=== PATIENT | male | born 2000 | race Caucasian/White ===

== ENCOUNTER 2018-12-13 12:20 | Emergency (ER) | payer OTHER, SELFPAY ==
[2018-12-13 12:25] VITALS: BP 122/62; PULSE 128; RESP 20; TEMP 38.6; O2SAT 95; BMI 28.0
[2018-12-13 12:51] LABS: Influenza A and B by PCR Rapid Negative (Negative)
--- NOTE | 2018-12-13 14:00 | ED.URI ---
HPI - URI/Sore Throat <Esther Her PA-C - Last Filed: 12/13/18 21:20> General Chief Complaint: Upper Respiratory Symptoms Stated Complaint: THINKS HE HAS THE FLU Time Seen by Provider: 12/13/18 14:06 Source: patient Mode of arrival: ambulatory Limitations: no limitations History of Present Illness HPI Narrative: This 18-year-old male comes to ED secondary to onset of cough last night along with fever, some headache and body aches. He states that he feels tired and dizzy. He had a temperature up to 103 this morning. Did take Tylenol at home. he denies wheeze or dyspnea. He states that his chest can hurt when he coughs. denies new pain or swelling in his extremities. There is no family history of blood clots. He states that his throat is scratchy but not terribly sore. He denies rash. He denies recent travel, has been exposed to others who are sick. He did have flu vaccine this year. He is keeping down fluids without problem. Related Data Previous Rx's Medication Instructions Recorded escitalopram 10 mg tablet 10 mg PO QDAY #90 tab 08/06/18 Allergies Allergy/AdvReac Type Severity Reaction Status Date / Time No Known Drug Allergies Allergy Verified 12/13/18 12:25 Review of Systems <Esther Her PA-C - Last Filed: 12/13/18 21:20> Review of Systems ROS Unobtainable: All systems reviewed & are unremarkable except as noted in HPI and below PFSH <Esther Her PA-C - Last Filed: 12/13/18 21:20> Medical History Generalized anxiety disorder (Chronic 07/21/17) Anxiety (Chronic) Surgical History History of third molar tooth extraction Family History Grandfather Arrhythmia Social History Smoking Status: Never smoker Family History Grandfather Arrhythmia Social History Smoking Status: Never smoker Exam <Esther Her PA-C - Last Filed: 12/13/18 21:20> Narrative Exam Narrative: GENERAL APPEARANCE: Patient sitting comfortably, in no distress. HEAD: No sinus TTP. EYES: PERRL, EOMI. EARS: Normal auditory canals, TMS intact, Left is somewhat injected ORAL CAVITY: Normal oropharynx. THROAT: mild erythema, no exudate, PND noted NECK/THYROID: Neck supple, full range of motion, shotty anterior cervical lymphadenopathy. LUNGS: Clear to auscultation bilaterally, dry cough on exam. HEART: RRR without murmur, nl S1, S2, no S3 or S4. DERM: No exanthem EXTREMITIES: No edema, no calf TTP Initial Vital Signs Initial Vital Signs: Vital Signs Temperature 101.5 F H 12/13/18 12:25 Pulse Rate 128 H 12/13/18 12:25 Respiratory Rate 20 12/13/18 12:25 Blood Pressure 122/62 12/13/18 12:25 Pulse Oximetry 95 12/13/18 12:25 <Seamus Flanagan MD - Last Filed: 12/14/18 19:21> Initial Vital Signs Initial Vital Signs: Vital Signs Temperature 101.5 F H 12/13/18 12:25 Pulse Rate 128 H 12/13/18 12:25 Respiratory Rate 20 12/13/18 12:25 Blood Pressure 122/62 12/13/18 12:25 Pulse Oximetry 95 12/13/18 12:25 Course <Esther Her PA-C - Last Filed: 12/13/18 21:20> Additional Information: Patient's influenza testing is negative. He does have a history of pneumonia, chest x-ray with no acute findings. He is feeling considerably improved after ibuprofen. Likely viral syndrome not influenza as testing was repeated twice in case of false negative . He agreed to return if any acutely worsening symptoms Orders Ordered: Discontinued Medications Ibuprofen (Advil) 800 mg PO NOW ONE Stop: 12/13/18 14:11 Last Admin: 12/13/18 14:19 Dose: 800 mg Vital Signs - 8 hr 12/13/18 14:57 12/13/18 14:58 12/13/18 15:26 Temperature 99.8 F H 99.8 F H Pulse Rate 119 H Respiratory Rate 16 Blood Pressure 109/67 Pulse Oximetry 97 <Seamus Flanagan MD - Last Filed: 12/14/18 19:21> Orders Ordered: Discontinued Medications Ibuprofen (Advil) 800 mg PO NOW ONE Stop: 12/13/18 14:11 Last Admin: 12/13/18 14:19 Dose: 800 mg Vital Signs - 8 hr 12/13/18 14:57 12/13/18 14:58 12/13/18 15:26 Temperature 99.8 F H 99.8 F H Pulse Rate 119 H Respiratory Rate 16 Blood Pressure 109/67 Pulse Oximetry 97 MDM - URI/Sore Throat <Esther Her PA-C - Last Filed: 12/13/18 21:20> Lab Data Lab Results 12/13/18 Range/Units 12:31 Influenza A & B (PCR) Negative (Negative) Point of Care Testing Rapid Strep A Negative Imaging Data Chest x-ray: Radiologist's impression: 19 Esther Her PA-C Find Patient Imaging Vipul Diaz N 18 M 2000 ACTIVITY DATE EXAM STATUS AUTHOR 12/13/18 14:[address] [address] XRay Report Signed Patient: Vipul Diaz [facility]#: [id number] : 2000Acct:[id number] Age/Sex: 18 / MDate of Service: 12/13/18 Loc: ED Accession Number: [id number] Procedure: XR chest 2V Ordering Provider: Esther Her P.A-C PROCEDURE: XR CHEST 2V INDICATIONS: fever, cough TECHNIQUE: 2 views of the chest were acquired. COMPARISON: None. FINDINGS: Surgical changes and devices: None. Lungs and pleura: Lungs are clear. No pleural effusions or pneumothorax. Mediastinum: Mediastinal contours are normal. Heart size is normal. Bones and chest wall: No suspicious bony abnormalities. Soft tissues appear unremarkable. IMPRESSION: No acute disease. No focal consolidation. Dictated by: Chip Jara M.D. on 12/13/2018 at 15:06 Approved by: Evaristo Dupont <Seamus Flanagan MD - Last Filed: 12/14/18 19:21> Lab Data Lab Results 12/13/18 Range/Units 12:31 Influenza A & B (PCR) Negative (Negative) Point of Care Testing Rapid Strep A Negative Discharge Plan Departure Patient Disposition: Home Clinical Impression: Acute viral syndrome Discharge Date/Time: 12/13/18 15:44 Interventions: ED Discharge Assessment Last Done: 12/13/18 15:26 Instructions: DI for Viral Syndrome Activity Restrictions/Additional Instructions: your test for the flu is negative, but I do think you have a virus that is causing similar symptoms. Your chest x-ray does not show pneumonia. Since you are feeling better, you can rest at home. Please take 800 mg of ibuprofen (for [id number] tablets) every 8 hr to help with fever and aches. You can add Tylenol every 4-6 hours in between as needed. Rest until you are feeling better and your cough is improved. As we talked about, you should return if you have any acutely worsening symptoms, i.e. difficulty breathing, high fever not responding to the ibuprofen and Tylenol, etc. Please see your PCP if you are not feeling better in the next week Prescriptions: No Action escitalopram oxalate [Lexapro] 10 mg tablet 10 mg PO QDAY Qty: 90 RF: 3 Referrals: Ginny Limon MD [Primary Care Provider] - <Seamus Flanagan MD - Last Filed: 12/14/18 19:21> Cosign ED Attending Cossheyature Attestation: I was in the ER at the time the patient's care. I was available for verbal consultation or to see the patient directly. I agree with the assessment and treatment plan.
--- NOTE | 2018-12-13 14:10 | DI.RAD.S_ITS ---
PROCEDURE: XR CHEST 2V INDICATIONS: fever, cough TECHNIQUE: 2 views of the chest were acquired. COMPARISON: None. FINDINGS: Surgical changes and devices: None. Lungs and pleura: Lungs are clear. No pleural effusions or pneumothorax. Mediastinum: Mediastinal contours are normal. Heart size is normal. Bones and chest wall: No suspicious bony abnormalities. Soft tissues appear unremarkable. IMPRESSION: No acute disease. No focal consolidation. Dictated by: Chip Jara M.D. on 12/13/2018 at 15:06 Approved by: Chip Jara M.D. on 12/13/2018 at 15:06
[2018-12-13] MEDS: IBUPROFEN 400 MG TABLET 800 MG PO (14:19)
[2018-12-13 14:57] VITALS: TEMP 37.7
[2018-12-13 14:58] VITALS: TEMP 37.7
[2018-12-13 15:26] VITALS: BP 109/67; PULSE 119; RESP 16; O2SAT 97
== END 2018-12-13 15:44 | disposition home or self-care (01) ==
PROVIDERS: Emergency Medicine; Emergency Provider Internal Medicine; Family Provider Internal Medicine; PCP Family Medicine
DX: B34.9 Viral infection, unspecified (principal); R50.9 Fever, unspecified
CPT/HCPCS: 71046; 87400; 87880; 99282; 99283

== ENCOUNTER → 2019-02-11 07:49 | Outpatient (CLI) | payer OTHER, SELFPAY ==
[2019-02-11 09:47] LABS: Alanine Aminotransferase 53 IU/L (21-72); Albumin 4.4 g/dL (3.5-5.0); Albumin Globulin Ratio 1.5 (1.0-2.8); Alkaline Phosphatase 48 U/L (38-126); Aspartate Aminotransferase 29 IU/L (17-59); BUN Creatinine Ratio 16.3 (6-22); Bilirubin Total 0.4 mg/dL (0.2-1.3); Blood Urea Nitrogen 13 mg/dL (9-20); Calcium 9.5 mg/dL (8.4-10.2); Carbon Dioxide 30 mmol/L (22-32); Chloride 101 mmol/L (98-107); Cholesterol 111 mg/dL (140-199); Estimated Glomerular Filt Rate > 60.0 mL/min (>60); Glucose 92 mg/dL (70-100); HDL Cholesterol 49 mg/dL (40-60); HEMOLYSIS < 15 (0-50); LDL Cholesterol Calculated 55 mg/dL (<100); Potassium 4.7 mmol/L (3.4-5.1); Sodium 138 mmol/L (137-145); Total Protein 7.4 g/dL (6.3-8.2); Triglycerides 34 mg/dL (35-150)
== END ==
PROVIDERS: Family Provider Internal Medicine; Visit Provider Internal Medicine
DX: Z00.01 Encounter for general adult medical examination with abnormal findings (principal); F41.9 Anxiety disorder, unspecified
CPT/HCPCS: 36415; 80053; 80061; 84443

== ENCOUNTER 2020-06-05 05:17 | Emergency (ER) | payer OTHER, SELFPAY ==
[2020-06-05 05:27] VITALS: BP 135/60; PULSE 73; RESP 15; TEMP 36.4; O2SAT 95; BMI 29.5
--- NOTE | 2020-06-05 05:32 | DI.RAD.S_ITS ---
PROCEDURE: XR ACUTE ABDOMEN SERIES INDICATIONS: Abdominal pain, colicky TECHNIQUE: One view chest and two views of the abdomen were acquired. COMPARISON: None. FINDINGS: Surgical changes and devices: None. Chest: Lungs are clear. Heart size is normal. No pleural effusions. No pneumoperitoneum. Abdomen: Bowel gas pattern is normal. No suspicious calcifications. Visualized solid organ contours appear normal. Bones: No suspicious bony lesions. IMPRESSION: No acute disease process. Dictated by: Berkley Sawant MD, PhD on 06/05/2020 at 8:14 Approved by: Berkley Sawant MD, PhD on 06/05/2020 at 8:15
--- NOTE | 2020-06-05 05:33 | ED_ITS ---
HPI - Abdominal Pain General Chief Complaint: Abdominal Pain Stated Complaint: right side pain Time Seen by Provider: 06/05/20 05:32 Source: patient and family Mode of arrival: Ambulatory Limitations: no limitations History of Present Illness HPI narrative: 19-year-old male nonsmoker with history of ADHD presents with his mother and a chief complaint of a sudden onset right sided abdominal pain that started yesterday at about 4:00 p.m.. He denies provocation, palliation or radiation. He states that at its most intense the pain is 7/10 and crampy and squeezing in nature. He denies any change in bowel habits such as constipation or diarrhea. He denies any dysuria, frequency or urgency. Pain went away for much of the night but then awoke him at 4:00 a.m. today. He has had no nausea or vomiting. He denies any fever or chills. He denies any history of the same. He denies any injury. He denies dysuria, frequency or urgency. MD complaint: abdominal pain Onset (ago): hour(s) Pain Consistency: intermittent and now resolved Location: RLQ Severity: moderate Quality: cramping and stabbing Radiation: none Relieving factors: nothing Exacerbating factors: nothing Associated symptoms: denies other symptoms Related Data Previous Rx's Medication Instructions Recorded ondansetron 4 mg PO TID-QID PRN #10 tab 06/05/20 oxycodone 5 mg PO Q4H PRN #20 tab 06/07/20 tamsulosin 0.4 mg PO BEDTIME #30 cap 06/07/20 tramadol 50 mg PO Q6H PRN #30 tab 06/07/20 Allergies Allergy/AdvReac Type Severity Reaction Status Date / Time No Known Drug Allergies Allergy Verified 06/07/20 15:24 Review of Systems Constitutional Constitutional: Denies chills, Denies fatigue, Denies fever(s), Denies frequent falls, Denies lethargy and Denies weakness Eyes Eyes: Denies change in vision, Denies eye discharge, Denies irritation and Denies loss of vision ENT Ears, Nose, Mouth, and Throat: Denies change in voice, Denies dizziness, Denies neck pain, Denies sore throat and Denies throat swelling Cardiovascular Cardiovascular: Denies chest pain, Denies irregular heart rhythm, Denies lightheadedness, Denies palpitations, Denies dyspnea, Denies dyspnea on exertion and Denies orthopnea Respiratory Respiratory: Denies cough, Denies dyspnea, Denies dyspnea on exertion and Denies wheezing Gastrointestinal Gastrointestinal: Reports abdominal pain, Denies change in bowel habits, Denies diarrhea, Denies nausea and Denies vomiting Musculoskeletal Musculoskeletal: Denies neck pain and Denies numbness Integumentary/Breasts Skin/Breast: Denies pruritus, Denies erythema, Denies rash and Denies wounds Neurologic Neurologic: Denies behavioral changes, Denies confusion, Denies dizziness, Denies frequent falls, Denies loss of vision, Denies numbness and Denies weakness Psychiatric Psychiatric: Denies anxiety, Denies behavioral changes, Denies confusion, Denies depression, Denies homicidal ideation and Denies suicidal ideation Endocrine Endocrine: Denies fatigue, Denies flushing and Denies palpitations Hematologic/Lymphatic Hematologic/Lymphatic: Denies easy bruising Allergic/Immunologic Allergic/Immunologic: Denies urticaria, Denies throat swelling and Denies wheezing Patient History Medical History Anxiety (Chronic) Generalized anxiety disorder (Chronic 07/21/17) Surgical History History of third molar tooth extraction Family History Grandfather Arrhythmia Social History household members: family Smoking Status: Never smoker Smoking Status: Never smoker Substance Use Type: does not use Exam Narrative Exam Narrative: GENERAL: [19] year old patient appears stated age. Well- nourished, well-developed patient, in mild distress. HEAD: Atraumatic. Normocephalic. EYES: Pupils equal round and reactive. Extraocular motions intact. No scleral icterus. No injection or drainage. ENT: Nose without bleeding, purulent drainage. Throat without erythema, tonsillar hypertrophy or exudate. Airway patent. NECK: Trachea midline. Non tender CARDIOVASCULAR: Regular rate and rhythm without murmurs, gallops, or rubs. RESPIRATORY: Clear to auscultation. Breath sounds equal bilaterally. No wheezes, rales, or rhonchi. GASTROINTESTINAL: Abdomen soft, non-tender, nondistended. Bowel sounds noted in all 4 quadrants EXTREMITIES: No edema or joint tenderness. BACK: Nontender without deformity or crepitance. No flank tenderness. NEURO: AOx3. SKIN: No rash or erythema of visible areas Initial Vital Signs Initial Vital Signs: Vital Signs Temperature 97.5 F L 06/05/20 05:27 Pulse Rate 73 06/05/20 05:27 Respiratory Rate 15 06/05/20 05:27 Blood Pressure 135/60 06/05/20 05:27 Pulse Oximetry 95 06/05/20 05:27 Course Orders Ordered: Discontinued Medications Sodium Chloride (Normal Saline 0.9%) 1,000 mls @ 1,000 mls/hr IV BOLUS ONE Stop: 06/05/20 07:14 Last Infusion: 06/05/20 08:12 Dose: 0 mls/hr Documented by: Admin: 06/05/20 06:30 Dose: 1,000 mls/hr Documented by: RONAN Ketorolac Tromethamine (Toradol) 15 mg IV NOW ONE Stop: 06/05/20 06:16 Last Admin: 06/05/20 06:29 Dose: 15 mg Documented by: RONAN Vital Signs Vital signs: Vital Signs - 8 hr 06/05/20 05:27 Temperature 97.5 F L Pulse Rate 73 Respiratory Rate 15 Blood Pressure 135/60 Pulse Oximetry 95 MDM - Abdominal Pain Lab Data Result diagrams: 06/05/20 06:25 06/05/20 06:25 Labs: Lab Results 06/05/20 06/05/20 06/05/20 Range/Units 05:36 06:25 06:25 WBC 8.1 (4.5-11.0) X10^3/uL RBC 4.65 (4.5-5.9) X10^6/uL Hgb 13.5 (13.5-17.5) g/dL Hct 40.1 L (41-53) % MCV 86.2 (80-100) fL MCH 29.0 (26-34) PG MCHC 33.6 (30-36) % RDW 12.9 (11.6-14.8) % Plt Count 221 (150-400) X10^3/uL Neut % (Auto) 69.7 (50-75) % Lymph % (Auto) 21.7 L (25-40) % Whitman % (Auto) 7.5 (3-14) % Eos % (Auto) 0.7 L (2-4) % Baso % (Auto) 0.4 (0-2) % Neut # (Auto) 5600 (6528-3127) /uL Lymph # (Auto) 1800 (3506-6418) /uL Whitman # (Auto) 600 (0-900) /uL Eos # (Auto) 100 (0-450) /uL Baso # (Auto) 0 (0-100) /uL Sodium 139 (137-145) mmol/L Potassium 4.3 (3.4-5.1) mmol/L Chloride 102 (98-107) mmol/L Carbon Dioxide 30 (22-32) mmol/L BUN 11 (9-20) mg/dL Creatinine 0.76 (0.66-1.25) mg/dL Estimated GFR > 60.0 (>60) mL/min BUN/Creatinine Ratio 14.5 (6-22) Glucose 100 (70-100) mg/dL Calcium 9.7 (8.4-10.2) mg/dL Urine Color Yellow Urine Appearance Sl cloudy Urine pH 6.0 (4.5-8.0) Ur Specific [place] 1.020 (1.000-1.035) Urine Protein Trace H (Negative) Urine Glucose (UA) Negative (Negative) g/dL Urine Ketones Negative (NEGATIVE) Urine Occult Blood 3+ H (Negative) Urine Nitrate Negative (Negative) Urine Bilirubin Negative (NEGATIVE) Urine Urobilinogen 0.2 (0.2) E.U./dL Ur Leukocyte Esterase Negative (NEGATIVE) Urine RBC 30-100/hpf H (0-5/HPF) Urine WBC 0-1/hpf (0-5/HPF) Ur Squamous Epith Cells 0-1 /hpf (0-5/HPF) Urine Bacteria None seen (None) Ur Culture Indicated? Cult not indicated Imaging Data CT scan - abdomen/pelvis: Radiologist's Impression: [address] [address] [address] Scan Report Signed Patient: Vipul Diaz NMR#: [id number] : 2000Acct:[id number] Age/Sex: te of Service: 06/05/20 Loc: ED Accession Number: [id number] Procedure: CT kidney ureter bladder (KUB) Ordering Provider: Edmar Ayon D.O. PROCEDURE: CT KIDNEY URETER BLADDER (KUB) INDICATIONS: severe flank pain TECHNIQUE: Noncontrast 5 mm thick sections acquired from the diaphragms to the symphysis. 5 mm thick coronal and sagittal reformats were then performed. For radiation dose reduction, the following was used: automated exposure control, adjustment of mA and/or kV according to patient size. COMPARISON: None. FINDINGS: Image quality: Excellent. Lung bases: Lung bases are clear. Heart size is normal. Urinary system: Both kidneys are normal in size. There are two 3 mm stones in the right upper pole. 4 mm stone in the right proximal ureter. Mild right hydronephrosis. No significant perinephric inflammation. No other urinary calcifications. Both distal ureters appear non-dilated throughout their expected courses. Bladder wall thickness is normal; no calcified bladder stones. Other solid organs: Liver is normal in size. Mild diffuse parenchymal attenuation and relative sparing in the gallbladder fossa. Gallbladder appears normal1 . Pancreas is normal in contours. Spleen is normal in size. No adrenal nodules. Peritoneum and bowel: Unenhanced bowel loops demonstrate normal wall thickness and caliber. No free fluid or air. Nodes and vessels: No retroperitoneal or mesenteric adenopathy by size criteria. Aorta and inferior vena cava are normal in caliber. Abdominal wall: No ventral hernias. Pelvis: No free pelvic fluid. No inguinal hernias or adenopathy. Bones: No suspicious bony lesions. No vertebral body compression fractures. IMPRESSION: 1. 4 mm right proximal ureteral stone causing mild right hydronephrosis. 2. 2 small right upper pole nonobstructing intrarenal calculi. 3. Mild hepatic steatosis. 4. Concordant with preliminary report. Dictated by: Bell Barrios M.D. on 06/05/2020 at 8:46 Approved by: Bell Barrios M.D. on 06/05/2020 at 8:50 Discharge Plan Departure Patient Disposition: Home Clinical Impression: Kidney stone on right side Discharge Date/Time: 06/05/20 08:12 Instructions: DI for Kidney Stones Activity Restrictions/Additional Instructions: *You have been diagnosed with [ kidney stone ] *What to do: *Take medications as directed: Prescriptions sent to [facility] *Follow up with your primary care provider in 2-3 days, call for an appointment. Let them know you were seen in the Emergency Department and that we ask that you be seen in follow up *Return to ER if you should have any new, worsening or concerning symptoms Prescriptions: New ondansetron 4 mg tablet,disintegrating 4 mg PO TID-QID PRN (Reason: nausea and vomiting) Qty: 10 RF: 0 No Action oxycodone 5 mg tablet 5 mg PO Q4H PRN (Reason: pain) Qty: 20 RF: 0 tramadol 50 mg tablet 50 mg PO Q6H PRN (Reason: pain) Qty: 30 RF: 0 tamsulosin 0.4 mg capsule 0.4 mg PO BEDTIME Qty: 30 RF: 1 Referrals: Narinder Jarrett MD [Physician] -
[2020-06-05 05:51] LABS: Bacteria Urine None Seen
[2020-06-05 05:53] LABS: Bilirubin Urine UA NEGATIVE (NEGATIVE); Color Urine UA YELLOW; Glucose Urine UA NEGATIVE (Negative); Ketones Urine UA NEGATIVE (NEGATIVE); Leukocyte Esterase Urine UA NEGATIVE (NEGATIVE); Nitrite Urine UA NEGATIVE (Negative); Occult Blood Urine UA 3+ (Negative); Protein Urine UA TRACE (Negative); Urobilinogen Urine UA 0.2 E.U./dL (0.2)
[2020-06-05 06:09] LABS: Appearance Urine UA SL CLOUDY
[2020-06-05 06:11] LABS: Culture Indicated Urine Cult Not Indicated; RBC Urine 30-100/HPF (0-5/HPF); Squamous Epithelial Cell Urine 0-1 /HPF (0-5/HPF); WBC Urine 0-1/HPF (0-5/HPF)
--- NOTE | 2020-06-05 06:15 | DI.CT.S_ITS ---
PROCEDURE: CT KIDNEY URETER BLADDER (KUB) INDICATIONS: severe flank pain TECHNIQUE: Noncontrast 5 mm thick sections acquired from the diaphragms to the symphysis. 5 mm thick coronal and sagittal reformats were then performed. For radiation dose reduction, the following was used: automated exposure control, adjustment of mA and/or kV according to patient size. COMPARISON: None. FINDINGS: Image quality: Excellent. Lung bases: Lung bases are clear. Heart size is normal. Urinary system: Both kidneys are normal in size. There are two 3 mm stones in the right upper pole. 4 mm stone in the right proximal ureter. Mild right hydronephrosis. No significant perinephric inflammation. No other urinary calcifications. Both distal ureters appear non-dilated throughout their expected courses. Bladder wall thickness is normal; no calcified bladder stones. Other solid organs: Liver is normal in size. Mild diffuse parenchymal attenuation and relative sparing in the gallbladder fossa. Gallbladder appears normal1 . Pancreas is normal in contours. Spleen is normal in size. No adrenal nodules. Peritoneum and bowel: Unenhanced bowel loops demonstrate normal wall thickness and caliber. No free fluid or air. Nodes and vessels: No retroperitoneal or mesenteric adenopathy by size criteria. Aorta and inferior vena cava are normal in caliber. Abdominal wall: No ventral hernias. Pelvis: No free pelvic fluid. No inguinal hernias or adenopathy. Bones: No suspicious bony lesions. No vertebral body compression fractures. IMPRESSION: 1. 4 mm right proximal ureteral stone causing mild right hydronephrosis. 2. 2 small right upper pole nonobstructing intrarenal calculi. 3. Mild hepatic steatosis. 4. Concordant with preliminary report. Dictated by: Bell Barrios M.D. on 06/05/2020 at 8:46 Approved by: Bell Barrios M.D. on 06/05/2020 at 8:50
[2020-06-05] MEDS: KETOROLAC 60 MG/2 ML VIAL 15 MG IV (06:29)
[2020-06-05] MEDS: SODIUM CHLORIDE 0.9% 1,000 ML 1000 ML IV (06:30)
[2020-06-05 06:31] LABS: Add Manual Diff / Slide Review NO; Basophils Absolute Auto 0 /uL (0-100); Basophils Percent Auto 0.4 % (0-2); Eosinophils Absolute Auto 100 /uL (0-450); Eosinophils Percent Auto 0.7 % (2-4); Hematocrit 40.1 % (41-53); Hemoglobin 13.5 g/dL (13.5-17.5); Lymphocytes Absolute Auto 1800 /uL (1100-4500); Lymphocytes Percent Auto 21.7 % (25-40); Mean Corpuscular HGB Conc 33.6 % (30-36); Mean Corpuscular Volume 86.2 fL (80-100); Monocytes Absolute Auto 600 /uL (0-900); Monocytes Percent Auto 7.5 % (3-14); Neutrophils Absolute Auto 5600 /uL (1500-7000); Neutrophils Percent Auto 69.7 % (50-75); Platelet Count 221 X10^3/uL (150-400); Red Blood Cell Count 4.65 X10^6/uL (4.5-5.9); Red Cell Distribution Width 12.9 % (11.6-14.8); White Blood Cell Count 8.1 X10^3/uL (4.5-11.0)
[2020-06-05 06:42] LABS: BUN Creatinine Ratio 14.5 (6-22); Blood Urea Nitrogen 11 mg/dL (9-20); Calcium 9.7 mg/dL (8.4-10.2); Carbon Dioxide 30 mmol/L (22-32); Chloride 102 mmol/L (98-107); Estimated Glomerular Filt Rate > 60.0 mL/min (>60); Glucose 100 mg/dL (70-100); HEMOLYSIS < 15 (0-50); Potassium 4.3 mmol/L (3.4-5.1); Sodium 139 mmol/L (137-145)
[2020-06-05 08:13] VITALS: BP 113/59; PULSE 63; RESP 16; O2SAT 100
== END 2020-06-05 08:12 | disposition home or self-care (01) ==
PROVIDERS: Emergency Provider Emergency Medicine; Family Provider Internal Medicine
DX: N20.0 Calculus of kidney (principal); F90.9 Attention-deficit hyperactivity disorder, unspecified type
CPT/HCPCS: 36415; 74022; 74176; 80048; 81001; 85025; 96361; 96374; 99284; J1885

== ENCOUNTER 2020-06-07 14:04 | Day surgery (SDC) | payer OTHER, SELFPAY ==
[2020-06-07] VITALS (9 sets, daily range): BP systolic 95–131; BP diastolic 54–93; PULSE 78–97; RESP 12–20; TEMP 36.3–36.7; O2SAT 94–99; BMI 28.0
--- NOTE | 2020-06-07 | DI.RAD.S_ITS ---
PROCEDURE: XR KUB INDICATIONS: Right ureteral calculus, post operative TECHNIQUE: One view of the abdomen acquired. COMPARISON: [facility], CR, XR ACUTE ABDOMEN SERIES, 06/05/2020, 5:24. FINDINGS: Surgical changes and devices: Right ureteral stent is present with multiple redundant loops at its superior aspect. Bowel: Bowel gas pattern is normal. Soft tissues: No suspicious abdominal calcifications. Visualized solid organ contours appear normal in size. Bones: No suspicious bony lesions. IMPRESSION: Postsurgical sequelae as above. Dictated by: Drew Kaur M.D. on 06/07/2020 at 17:58 Approved by: Drew Kaur M.D. on 06/07/2020 at 17:59
--- NOTE | 2020-06-07 | DI.RAD.S_ITS ---
PROCEDURE: XR ABDOMEN 1V INDICATIONS: RIGHT STENT PLACEMENT for ureteral calculus TECHNIQUE: One view of the abdomen acquired. COMPARISON: None. FINDINGS: Surgical changes and devices: Right ureteral stent has been placed. Multiple redundant loops are present at its superior aspect. Bowel: Bowel gas pattern is normal. Soft tissues: No suspicious abdominal calcifications. Visualized solid organ contours appear normal in size. Bones: No suspicious bony lesions. IMPRESSION: Ureteral stent placement. Dictated by: Drew Kaur M.D. on 06/07/2020 at 17:59 Approved by: Drew Kaur M.D. on 06/07/2020 at 17:59
[2020-06-07] MEDS: LACTATED RINGERS 1,000 ML 42 ML IV (15:24)
[2020-06-07 15:33] LABS: COVID19 -Nasal RAPID Negative (Negative)
--- NOTE | 2020-06-07 16:45 | PM.HP.1 ---
History of Present Illness History of Present Illness Date Patient Seen: 06/07/20 Time Patient Seen: 16:48 Date of Onset of Symptoms: 06/06/20 Chief complaint: CYSTOSCOPY Narrative: Nick is a 19-year-old white male who was experiencing his usual health until last night when he had acute severe onset of right-sided flank and abdominal pain. His mother, a PACU nurse brought him to the ED for evaluation. CT KUB demonstrated an obstructing 4 mm calculus in the proximal right ureter and additional 2 nonobstructing 3 mm calculi in the right upper pole. There was mild associated hydronephrosis and perinephric stranding. Pain was initially well controlled and he was discharged with [place], Zofran, and ketorolac. The urology clinic received a telephone call late this morning reporting he was doing very poorly in terms of pain nausea and vomiting. He now presents for further evaluation and management. Patient History Medical History Anxiety (Chronic) Generalized anxiety disorder (Chronic 07/21/17) Surgical History History of third molar tooth extraction Family & Social History Family History Grandfather Arrhythmia Social History: household members family Tobacco & Substance use: Smoking Status Never smoker alcohol intake frequency a few times a month Substance Use Type does not use Meds Home Medications and Allergies Home Medications Medication Instructions Recorded Confirmed Type hydrocodone-acetaminophen 1 tab PO Q4-6H PRN #10 tab 06/05/20 06/07/20 Rx ketorolac 10 mg PO Q6H PRN #14 tab 06/05/20 06/07/20 Rx ondansetron 4 mg PO TID-QID PRN #10 tab 06/05/20 06/07/20 Rx Allergies Allergy/AdvReac Type Severity Reaction Status Date / Time No Known Drug Allergies Allergy Verified 06/07/20 15:24 Review of Systems Review of Systems ROS: Yes All systems reviewed with the patient and are negative except as otherwise documented Exam Vital Signs (past 8 hours): - 06/07/20 15:12 Temperature 98.1 F Pulse Rate 88 Respiratory Rate 16 Blood Pressure 127/72 Pulse Oximetry 99 Oxygen Delivery Method Room Air Narrative Exam Narrative: He is a well-developed mildly over nourished young white male was acutely anxious and intermittently tearful. Head/neck-atraumatic and normocephalic. No JVD or adenopathy. Chest-clear, unlabored and equal expansion bilaterally. Heart-regular rhythm and regular rate no extra sounds. Objective Labs Labs: Laboratory Results - last 24 hr 06/07/20 14:12 COVID-19 PCR Negative Assessment & Plan Assessment & Plan narrative: Assessment: 1. Obstructing 4 mm right proximal ureteral calculus. 2. Nonobstructing right renal calculi x2 each approximately 3 mm. Plan: 1. Discussion, informed consent and proceed to OR for urgent CYSTOSCOPY AND PLACEMENT RIGHT URETERAL STENT. Reviewed findings and discussed impression and options. Explained the rationale and indications for ureteral stent placement given his failure of medical expulsion therapy. Utilized line diagrams and obtaining informed consent. He understands that there will be secondary procedures required either ESWL or laser lithotripsy. We also discussed the rationale on indications for future metabolic stone risk evaluation. Following considerable deliberation and further discussion with his mother he elects to proceed.
[2020-06-07] MEDS: MIDAZOLAM 2 MG/2 ML VIAL IV (16:49)
--- NOTE | 2020-06-07 16:55 | PM.PREOP ---
Pre-operative Note COVID-19 COVID-19 status: Negative Result date/Date tested (Pos, Neg/Pending): 06/07/20 Interval Note History & Physical reviewed/Exam performed by Physician: Yes Changes to H&P: No
[2020-06-07] MEDS: CEFAZOLIN 2 GM/100 ML FROZ.PIGGY IV (17:08)
--- NOTE | 2020-06-07 17:10 | SUR.PHASEI ---
Medicated with 2 mg Versed prior to procedure for anxiety.
--- NOTE | 2020-06-07 17:16 | SUR.OPER ---
Lithotomy on padded OR bed, head on pillow, arms secured on padded arm boards at <90 degrees abduction. Legs secured in padded yellow fins stirrups.
[2020-06-07] MEDS: BELLADONNA/OPIUM SUPPOSITORIES 1 EACH PR (17:20)
--- NOTE | 2020-06-07 17:23 | PM.OP.1 ---
Operative Date/Time/Diagnoses Date of procedure: 06/07/20 Time of procedure: 17:23 Pre-op diagnosis: Obstructing 4 mm right ureteral calculus. Failure medical therapy. Post-op diagnosis: same Procedure & Clinicians Procedure: 1. Cystoscopy and placement right ureteral stent (6 [place] Citizen by 22-32 cm multi-length) Same procedure as scheduled: Yes Indications: 1. Obstructing 4 mm right proximal ureteral calculus. 2. Nonobstructing right ureteral calculi x2. Surgeon: Narinder Jarrett Click Yes if Unassisted: Yes Anesthesia Type: General Operative Notes Findings: 1. Urethra-normal 2. External sphincter-coapted 3. Prostate -3 cm length nonobstructing. 4. Bladder-normal ureteral orifices bilaterally. No stone tumor foreign body seen. 5. No radiopaque densities were seen on on prepped fluoroscopic views. Closure Type: not applicable Specimen(s): none sent Applied: other (Six [place] Citizen by 22-32 cm multi-length) Estimated Blood Loss (mL): 0 Blood products transfused: none Tourniquet time (min): 0 Procedure in detail: Patient was positioned in supine was administered general anesthesia. He was then repositioned semi lithotomy the lower abdomen, genitalia, and groin were prepped and draped in sterile fashion. The 22 [place] Citizen panendoscope was then passed the lower urinary tract with the findings as described above. Next a 0.35 guidewire was advanced into the right collecting system and advanced so the tip was coiled in the right renal pelvis under direct and fluoroscopic guidance. Next, a 6 [place] Citizen by 22-32 cm multi-length stent was selected. This was then advanced over the guidewire again under direct and fluoroscopic guidance. NO RETRIEVAL LINE WAS LEFT ATTACHED. The bladder was then drained completely and all instrumentation was removed. The patient was then repositioned in supine, awakened, and transferred to recovery in stable condition. Complications: none Post-operative Condition: stable Disposition: PACU Plan for aftercare: Discharge
--- NOTE | 2020-06-07 17:48 | SUR.PHASEII ---
Patient denies pain. Tolerating po. VSS.
[2020-06-07] MEDS: ONDANSETRON 4 MG/2 ML INJ IV (18:03)
--- NOTE | 2020-06-07 18:06 | SUR.PHASEII ---
Gave patient Zofran for c/o nausea.
== END 2020-06-07 18:20 | disposition home or self-care (01) ==
PROVIDERS: Family Provider Internal Medicine; PCP Internal Medicine; Referring Provider Internal Medicine; Visit Provider Specialist
PROC: (CPT 52332; principal; 2020-06-07 15:45)
DX: N20.1 Calculus of ureter (principal); F41.9 Anxiety disorder, unspecified
CPT/HCPCS: 52332; 74018; 76000; 87635; J0690; J2250; J2405; J3010

== ENCOUNTER → 2020-06-20 11:12 | Outpatient (CLI) | payer OTHER, SELFPAY ==
[2020-06-21 07:55] LABS: COVID19 Sendout Not Detected (Not Detect)
== END ==
PROVIDERS: Family Provider Internal Medicine; PCP Internal Medicine; Visit Provider Nurse Practitioner
DX: Z11.59 Encounter for screening for other viral diseases (principal)
CPT/HCPCS: 87635

== ENCOUNTER → 2020-06-21 18:02 | Outpatient (ROUT) | payer OTHER, SELFPAY ==
[2020-07-12 13:50] LABS: Stone Analysis Source NOT PROVIDED
== END ==
PROVIDERS: Family Provider Internal Medicine; PCP Internal Medicine; Visit Provider Specialist
DX: N20.0 Calculus of kidney (principal)
CPT/HCPCS: 82365

== ENCOUNTER → 2020-06-22 08:54 | Outpatient (CLI) | payer OTHER, SELFPAY ==
--- NOTE | 2020-06-22 08:56 | DI.RAD.S_ITS ---
PROCEDURE: XR KUB INDICATIONS: Kidney stone TECHNIQUE: One view of the abdomen acquired. COMPARISON: [facility], , XR KUB, 06/07/2020, 17:35. FINDINGS: Surgical changes and devices: Unchanged position of right ureteral stent. Bowel: Bowel gas pattern is normal. Soft tissues: No suspicious abdominal calcifications. Visualized solid organ contours appear normal in size. Bones: No suspicious bony lesions. IMPRESSION: Right ureteral stent as before. Dictated by: Drew Mora M.D. on 06/22/2020 at 10:44 Approved by: Drew Mora M.D. on 06/22/2020 at 10:46
== END ==
PROVIDERS: Family Provider Internal Medicine; PCP Internal Medicine; Referring Provider Specialist; Visit Provider Specialist
DX: N20.0 Calculus of kidney (principal); Z96.0 Presence of urogenital implants
CPT/HCPCS: 74018

== ENCOUNTER 2020-06-23 08:18 | Day surgery (SDC) | payer OTHER, SELFPAY ==
[2020-06-23] VITALS (10 sets, daily range): BP systolic 93–132; BP diastolic 49–82; PULSE 65–665; RESP 10–25; TEMP 36.1–37; O2SAT 95–99
[2020-06-23] MEDS: LACTATED RINGERS 1,000 ML 42 ML IV ×2 (08:29→10:54)
--- NOTE | 2020-06-23 09:12 | PM.PREOP ---
Pre-operative Note Interval Note History & Physical reviewed/Exam performed by Physician: Yes Changes to H&P: Yes H&P completed within 30 days and has changed as indicated here:: In the interval the patient passed 2 very tiny, probable calculus fragments. KUB 06/22/2020, again failed to demonstrate a radiopaque density. Operative plan remains the same.
[2020-06-23] MEDS: CEFAZOLIN 2 GM/100 ML FROZ.PIGGY IV (09:39)
--- NOTE | 2020-06-23 10:04 | SUR.OPER ---
Lithotomy on padded OR bed, head on pillow, arms secured on padded arm boards at <90 degrees abduction. Legs secured in padded yellow fins stirrups.
[2020-06-23] MEDS: BELLADONNA/OPIUM SUPPOSITORIES 1 EACH PR (10:08)
--- NOTE | 2020-06-23 10:28 | P.OP_ITS ---
Operative Date/Time/Diagnoses Date of procedure: 06/23/20 Time of procedure: 10:28 Pre-op diagnosis: 4 mm right proximal ureteral calculus Procedure & Clinicians Procedure: 1. Cystoscopy and right ureteroscopic laser lithotripsy. 2. Cystoscopy and removal right ureteral stent. Same procedure as scheduled: Yes Indications: 1. Obstructing 4 mm right proximal ureteral calculus. 2. Retained right ureteral stent. 3. History of intractable right renal colic. Surgeon: Narinder Jarrett Click Yes if Unassisted: Yes Anesthesia Type: General Operative Notes Findings: Urethra-normal External sphincter-coapted Prostate-3 cm length nonobstructing. Bladder-normal is urothelium throughout with the exception of mild bullous edema and erythema the vicinity of the right ureteral orifice. Right ureter-following removal of the retained right ureteral stent, ureteroscopy revealed distal migration of the stone to the level of the iliac vessels. Subsequent laser lithotripsy with a 273 micron fiber was uneventful. Closure Type: not applicable Specimen(s): none sent Estimated Blood Loss (mL): 0 Blood products transfused: none Tourniquet time (min): 0 Procedure in detail: Patient was positioned supine and administered general anesthesia. The lower abdomen genitalia and groin were then prepped and draped in sterile fashion. The 22 Citizen [place] panendoscope was then advanced and lower urinary tract under direct visualization. A foreign body grasper was then used to engage the stent and remove it. The scope was reintroduced, and a 0.35 guidewire was then advanced in the right collecting system. The panendoscope was then removed and the semi rigid ureteral scope was introduced lower urinary tract and advanced proximally under direct visualization. It was then insinuated into the right ureteral orifice and advanced proximally were upon the index stone was encountered at the above-described location. The ureteral scope was advanced proximal to the calculus to level of the right UPJ no other stone or fragment was seen. Of note, the index calculus had a very fast sedated and sharp edges. And All operating room personnel and patient were then fitted with laser safety eyewear. The 273 micron fiber was selected and laser lithotripsy was then com menced. The stone fragmented readily. Tiny fragments were then removed from the ureter via hydrostatic and mechanical agitation. A final examination of the ureter revealed no evidence of clot or stone fragment. A decision was made to not reintroduce a stent. The ureteral scope was then removed. The panendoscope was then reintroduced and advanced into the bladder. The bladder contents were then drained a final time and the panendoscope was removed a final time. The patient was then repositioned supine, was awakened, and was then transferred to recovery in stable condition. Complications: none Post-operative Condition: stable Disposition: PACU Plan for aftercare: Discharge
[2020-06-23] MEDS: ONDANSETRON 4 MG/2 ML INJ IV (10:49)
[2020-06-23] MEDS: METOCLOPRAMIDE 10 MG/2 ML INJ IV (10:49)
--- NOTE | 2020-06-23 11:03 | SUR.PHASEI ---
Oral airway removed, patient tolerated well. Denies pain or nausea at this time. VSS.
--- NOTE | 2020-06-23 16:02 | SUR.PHASEII ---
Late entry: Received pt awake, in no pain and not nauseated. Unsuccessful attempt to void in urinal, pt assisted to BR by his mom annd he voided in there, urine strained and a few small stones obtained. Stones showed rto Dr. Jarrett who stated they were big enough to send and the specimen cup was sent to lab.
== END 2020-06-23 12:45 | disposition home or self-care (01) ==
PROVIDERS: Family Provider Internal Medicine; PCP Internal Medicine; Referring Provider Internal Medicine; Visit Provider Specialist
PROC: (CPT 52353; principal; 2020-06-23 09:15)
DX: N20.1 Calculus of ureter (principal); F41.9 Anxiety disorder, unspecified
CPT/HCPCS: 52353; 76000; 82365; J0690; J1100; J1885; J2250; J2405; J2704; J2765; J3010

== ENCOUNTER → 2020-07-27 11:59 | Outpatient (CLI) | payer OTHER, SELFPAY ==
[2020-07-27 13:19] LABS: Calcium 9.9 mg/dL (8.4-10.2); Uric Acid 6.2 mg/dL (3.5-8.5)
[2020-07-28 10:29] LABS: Parathyroid Hormone Int 19 pg/mL (15-65)
== END ==
PROVIDERS: Specialist; Family Provider Internal Medicine; PCP Internal Medicine; Referring Provider Internal Medicine; Visit Provider Internal Medicine
DX: N20.1 Calculus of ureter (principal)
CPT/HCPCS: 82310; 83970; 84550